=== PATIENT | female | born 1965 | race Caucasian/White ===

== ENCOUNTER 2017-04-25 12:51 | Emergency (ER) | payer OTHER, BC ==
[2017-04-25 13:00] VITALS: PULSE 64; TEMP 97.7; BMI 27.1
[2017-04-25 13:39] VITALS: BP 153/83
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
== END 2017-04-25 13:55 | disposition home or self-care (01) ==
LOC: JERFT 12:51
DX: S09.93XA Unspecified injury of face, initial encounter (principal); Y35.811A Legal intervention involving manhandling, law enforcement official injured, initial encounter; Y93.89 Activity, other specified; Y92.89 Other specified places as the place of occurrence of the external cause; Y99.0 Civilian activity done for income or pay
CPT/HCPCS: 99281-25

== ENCOUNTER 2017-07-25 16:36 | Emergency (ER) | payer OTHER, BC ==
[2017-07-25 16:49] VITALS: BP 145/79; PULSE 80; TEMP 98.4; BMI 31.8
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
[2017-07-25] MEDS ORDERED: IBUPROFEN 400 MG TABLET (FP) PO ONE ×2 (17:56→17:58)
== END 2017-07-25 18:07 | disposition home or self-care (01) ==
LOC: JERFT 16:36
DX: S63.502A Unspecified sprain of left wrist, initial encounter (principal); Z77.21 Contact with and (suspected) exposure to potentially hazardous body fluids; Y35.891A Legal intervention involving other specified means, law enforcement official injured, initial encounter; Y93.89 Activity, other specified; Y92.89 Other specified places as the place of occurrence of the external cause; Y99.0 Civilian activity done for income or pay; Z85.3 Personal history of malignant neoplasm of breast; F17.200 Nicotine dependence, unspecified, uncomplicated
CPT/HCPCS: 73110-TC-LR-FY; 73130-TC-LR-FY; 99281-25

== ENCOUNTER 2020-09-28 08:57 | Emergency (ER) | payer BC ==
[2020-09-28 09:08] VITALS: BP 143/84; PULSE 74; TEMP 97.8; BMI 31.5
== END 2020-09-28 09:33 | disposition home or self-care (01) ==
LOC: FER 08:57
DX: T63.621A Toxic effect of contact with other jellyfish, accidental (unintentional), initial encounter (principal); Y92.832 Beach as the place of occurrence of the external cause; Y93.11 Activity, swimming
CPT/HCPCS: 99283-25; 99285-25

== ENCOUNTER 2022-01-18 12:29 | Emergency (ER) | payer BC, OTHER ==
[2022-01-18] MEDS ORDERED: ACETAMINOPHEN 500 MG TABLET (FP) PO ONE (12:55)
[2022-01-18] MEDS ORDERED: KETOROLAC TROMETHAMINE 30 MG/1 ML VIAL IM ONE (12:56)
[2022-01-18] MEDS ORDERED: METHOCARBAMOL 750 MG TABLET PO ONE (12:56)
[2022-01-18 13:10] VITALS: BP 122/54; PULSE 60; RESP 20; TEMP 98.6; BMI 31.5
[2022-01-18] MEDS ORDERED: ACETAMINOPHEN 325 MG TABLET (FP) ONE (13:16)
[2022-01-18] MEDS ORDERED: METHOCARBAMOL 500 MG TABLET ONE (13:16)
[2022-01-18] MEDS ORDERED: KETOROLAC TROMETHAMINE 30 MG/1 ML VIAL ONE (13:16)
[2022-01-18] MEDS ORDERED: LIDOCAINE 5% TOPICAL PATCH TP ONE (14:02)
[2022-01-18] MEDS ORDERED: LIDOCAINE 5% TOPICAL PATCH ONE (14:08)
[2022-01-18] MEDS ORDERED: LIDOCAINE PATCH REMOVAL MC SCH (22:00)
== END 2022-01-18 14:21 | disposition home or self-care (01) ==
LOC: FER 12:29
PROC: 3E023GC Introduction of Other Therapeutic Substance into Muscle, Percutaneous Approach (ICD-10-PCS; principal; 2022-01-18)
DX: S13.9XXA Sprain of joints and ligaments of unspecified parts of neck, initial encounter (principal); M25.512 Pain in left shoulder; M25.532 Pain in left wrist; Y99.8 Other external cause status
CPT/HCPCS: 73030-TC-RT-FY; 73070-TC-RT-FY; 73110-TC-RT-FY; 73130-TC-RT-FY; 99284-25